=== PATIENT | male | born 1945 | race Caucasian/White ===

== ENCOUNTER → 2020-11-10 | Outpatient (CLI) | payer MEDICARE | LOC: RT 08:16 | DX: I48.91 Unspecified atrial fibrillation (principal); I10 Essential (primary) hypertension; R00.1 Bradycardia, unspecified | CPT/HCPCS: 93005 ==

== ENCOUNTER → 2021-01-02 | Outpatient (CLI) | payer MEDICARE | LOC: LAB 08:26 | DX: R94.6 Abnormal results of thyroid function studies (principal); R01.1 Cardiac murmur, unspecified; I48.20 Chronic atrial fibrillation, unspecified; H90.2 Conductive hearing loss, unspecified; I10 Essential (primary) hypertension; E78.5 Hyperlipidemia, unspecified; H35.3131 Nonexudative age-related macular degeneration, bilateral, early dry stage; Z86.010 Personal history of colon polyps; Z85.46 Personal history of malignant neoplasm of prostate; M15.9 Polyosteoarthritis, unspecified; H90.42 Sensorineural hearing loss, unilateral, left ear, with unrestricted hearing on the contralateral side; E11.65 Type 2 diabetes mellitus with hyperglycemia | CPT/HCPCS: 36415; 84439; 84443 ==

== ENCOUNTER → 2021-05-01 | Outpatient (CLI) | payer MEDICARE ==
[2021-05-02 08:13] LABS: THYROXINE (T4) 8.8 ug/dL (4.5-12.0)
== END ==
LOC: LAB 09:38
PROVIDERS: Family Medicine
DX: E03.9 Hypothyroidism, unspecified (principal); I10 Essential (primary) hypertension; E78.5 Hyperlipidemia, unspecified; E11.9 Type 2 diabetes mellitus without complications; I48.20 Chronic atrial fibrillation, unspecified; Z85.46 Personal history of malignant neoplasm of prostate; Z86.010 Personal history of colon polyps
CPT/HCPCS: 36415; 84436; 84443; 84480

== ENCOUNTER → 2021-11-06 | Outpatient (CLI) | payer MEDICARE | LOC: RAD 08:15 | DX: M25.561 Pain in right knee (principal); M17.11 Unilateral primary osteoarthritis, right knee | CPT/HCPCS: 73564 ==

== ENCOUNTER → 2022-01-04 | Outpatient (CLI) | payer MEDICARE | LOC: HEART 5 01-03 10:00 | DX: I48.0 Paroxysmal atrial fibrillation (principal); I08.3 Combined rheumatic disorders of mitral, aortic and tricuspid valves | CPT/HCPCS: 93306 ==